=== PATIENT | male | born 1995 | race African-American/Black ===

== ENCOUNTER 2017-06-03 16:46 | Emergency (ER) | payer SELFPAY ==
[~2017-06-03] VITALS: Ht 185.4 cm; Wt 74.8 kg
[~2017-06-03 16:46] MED LIST: NAPR500T3 PO
[2017-06-03 17:00] VITALS: BP 133/83
--- NOTE | 2017-06-03 17:32 | PHYS DOC ---
Past Medical History Past Medical History: No Pertinent History Past Surgical History: Other Additional Past Surgical Histo: hernia Alcohol Use: None Drug Use: None Adult General Chief Complaint Chief Complaint: WRIST PAIN HPI HPI Patient is a 21 year old presents to the emergency Department stating around 11 :00 this when he was playing basketball when he collided with another person and fell and had his left wrist stepped on. Patient has full range of motion of the wrist however he does state he has increased pain when he moves system down into the wrist area. He does have some redness noted over the wrist area as well. 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 Patient states he has not taken anything for pain and discomfort as he has forgotten to take it. Review of Systems Review of Systems Constitutional: Denies fever or chills [] Eyes: Denies change in visual acuity, redness, or eye pain [] HENT: Denies nasal congestion or sore throat [] Respiratory: Denies cough or shortness of breath [] Cardiovascular: No additional information not addressed in HPI [] GI: Denies abdominal pain, nausea, vomiting, bloody stools or diarrhea [] : Denies dysuria or hematuria [] Musculoskeletal: Denies back pain. Complaining right wrist pain and discomfort. Integument: Denies rash or skin lesions [] Neurologic: Denies headache, focal weakness or sensory changes [] Endocrine: Denies polyuria or polydipsia [] Allergies Allergies Allergies Coded Allergies Type Severity Reaction Last Updated Verified No Known Drug Allergies 08/21/16 No Physical Exam Physical Exam Constitutional: Well developed, well nourished, no acute distress, non-toxic appearance. [] HENT: Normocephalic, atraumatic, bilateral external ears normal, oropharynx moist, no oral exudates, nose normal. [] Eyes: PERRLA, EOMI, conjunctiva normal, no discharge. [] Neck: Normal range of motion, no tenderness, supple, no stridor. [] Cardiovascular:Heart rate regular rhythm Lungs & Thorax: No respiratory distress noted. Skin: Warm, dry, no erythema, no rash. [] Back: No tenderness Extremities: Left wrist tenderness, no cyanosis, no clubbing, ROM intact, no edema. Patient was noted to have redness over the radial part of the left wrist. 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 Full range of motion of the wrist noted. Cap refill brisk less than 2 seconds. Peripheral pulses 2+. Neurologic: Alert and oriented X 3, normal motor function, normal sensory function, no focal deficits noted. [] Psychologic: Affect normal, judgement normal, mood normal. [] Current Patient Data Vital Signs Vital Signs Date Time Temp Pulse Resp B/P (MAP) Pulse Ox O2 Delivery O2 Flow Rate FiO2 06/03/17 17:00 98.1 59 16 98 Room Air 98.1 EKG EKG [] Radiology/Procedures Radiology/Procedures [] Course & Med Decision Making Course & Med Decision Making Pertinent Labs and Imaging studies reviewed. (See chart for details) Aidan wrap placed over the area with recommendations to wear this for the next 5- 7 days. Tylenol or ibuprofen for pain and discomfort. Ice packs on 20 minutes off 20 minutes several times today. Elevation as much as possible. X-rays were negative per Dr. Ku. Patient will be provided with orthopedic name and number to follow up with for any continued discomfort within the next week. Patient was provided with signs and symptoms to return back to emergency department. Patient be discharged home in stable condition. All questions and concerns answered patient at bedside. [] Dragon Disclaimer Dragon Disclaimer This electronic medical record was generated, in whole or in part, using a voice recognition dictation system. Departure Departure Impression: Primary Impression: Left wrist pain Disposition: 01 HOME, SELF-CARE Condition: STABLE Referrals: NO PCP (PCP) Patient Instructions: Wrist Sprain with Rehab-SportsMed Additional Instructions: Activity as tolerated. Wear the Aidan wrap for the next 5-7 days. Ice packs on 20 minutes off 20 minutes several times a day Tylenol or ibuprofen for pain and discomfort. Follow-up with orthopedic within the next week. Return back to emergency prior signs symptoms of become worse. ZOILA HARRISON MORTGAGE LOAN COORDINATOR Jun 03, 2017 17:32
--- NOTE | 2017-06-04 07:31 | RAD ---
Exam: Left wrist radiographs 06/03/2017 at 1702 hours Indication: Pain and swelling at the first and second CMC joint. Comparison: None available Technique: 3 views of the left wrist are provided. Findings: There is no acute fracture or dislocation. No joint space narrowing. No significant soft tissue swelling. No osseous erosion or soft tissue gas. Bone mineralization is within normal limits. Impression: No acute fracture or dislocation.
== END 2017-06-03 17:55 | disposition home or self-care (01) ==
LOC: ER 16:46
DX: M25.532 Pain in left wrist (principal); W50.0XXA Accidental hit or strike by another person, initial encounter; Y93.67 Activity, basketball; Y92.89 Other specified places as the place of occurrence of the external cause; Y99.8 Other external cause status
CPT/HCPCS: 73110; 99284-25

== ENCOUNTER 2018-07-26 19:03 | Emergency (ER) | payer SELFPAY ==
[~2018-07-26] VITALS: Ht 188 cm; Wt 79.4 kg
[~2018-07-26 19:03] MED LIST changes: +NAPR-514 PO; -NAPR500T3 PO
[2018-07-26 19:18] VITALS: BP 130/85
--- NOTE | 2018-07-26 19:38 | PHYS DOC ---
Past Medical History Past Medical History: No Pertinent History Past Surgical History: Other Additional Past Surgical Histo: hernia Alcohol Use: None Drug Use: None Adult General Chief Complaint Chief Complaint: ANKLE PROBLEM HPI HPI Patient is a 22 year old male who presents with 7 out of 10 left lateral ankle pain that began on Thursday last week, patient states he was playing basketball when he rolled his ankle. Patient states he has been icing and elevating the extremity with some relief. Review of Systems Review of Systems Constitutional: Denies fever or chills [] Musculoskeletal: Reports left lateral ankle pain Integument: Denies rash or skin lesions [] Neurologic: Denies headache, focal weakness or sensory changes [] All other systems were reviewed and found to be within normal limits, except as documented in this note. Allergies Allergies Allergies Coded Allergies Type Severity Reaction Last Updated Verified No Known Drug Allergies 08/21/16 No Physical Exam Physical Exam Constitutional: Well developed, well nourished, no acute distress, non-toxic appearance. [] Skin: Warm, dry, no erythema, no rash. [] Back: No tenderness, no CVA tenderness. [] Extremities: Left ankle with no obvious deformity. Mild soft tissue swelling noted on the left lateral ankle with bruising on the ankle. Full passive range of motion to the left ankle. +2 left pedal pulse. Cap refill less than 2 seconds left toes. Neurologic: Alert and oriented X 3, normal motor function, normal sensory function, no focal deficits noted. [] Psychologic: Affect normal, judgement normal, mood normal. [] Current Patient Data Vital Signs Vital Signs Date Time Temp Pulse Resp B/P (MAP) Pulse Ox O2 Delivery O2 Flow Rate FiO2 07/26/18 19:18 98.4 58 18 130/85 (100) 99 Room Air 98.4 EKG EKG [] Radiology/Procedures Radiology/Procedures [] Course & Med Decision Making Course & Med Decision Making Pertinent Labs and Imaging studies reviewed. (See chart for details) This is a 22-year-old male patient presented to the ED today with left ankle pain. Patient was playing basketball last week and landed on the ankle wrong. Right ankle x-rays interpreted by Dr. Hall is negative for any acute findings. Air cast provided to the left ankle by the ED RN, neurovascular exam is intact, ice elevation encouraged. Follow-up with orthopedic doctor in one week. OTC pain relievers. Dragon Disclaimer Dragon Disclaimer This electronic medical record was generated, in whole or in part, using a voice recognition dictation system. Departure Departure Impression: Primary Impression: Moderate left ankle sprain Disposition: HOME, SELF-CARE Condition: STABLE Referrals: NO PCP (PCP) RAKESH PONCE MD follow up in one week Patient Instructions: Ankle Sprain, Acute, with Phase I Rehab-SportsMed Additional Instructions: You were evaluated at the emergency room for left ankle sprain. Ice elevate the extremity. Follow-up with orthopedic doctor provided in one week. Come back to the emergency room at any point symptoms worsen. Scripts Naproxen (NAPROXEN) 500 Mg Tablet.dr 1 TAB PO BID, #20 TAB 0 Refills Prov: DALE NAPOLES APRN 07/26/18 Problem Qualifiers Primary Impression: Moderate left ankle sprain Encounter type: initial encounter Qualified Codes: S93.402A - Sprain of unspecified ligament of left ankle, initial encounter DALE NAPOLES APRN Jul 26, 2018 19:38
--- NOTE | 2018-07-26 19:47 | RAD ---
EXAM: LEFT ANKLE 3 VIEWS. HISTORY: Lateral ankle pain and swelling after injury. COMPARISON: None. FINDINGS: Three views of the left ankle are obtained. There is soft tissue swelling laterally greater than medially. No fractures are identified. Alignment is normal. Joint spaces are maintained. IMPRESSION: 1. Soft tissue swelling. No fracture. Electronically signed by: Mendy Arce MD (07/26/2018 7:45 PM) [facility]
[2018-07-26] MEDS ORDERED: NAPR500T8 PO (19:51)
== END 2018-07-26 20:03 | disposition home or self-care (01) ==
LOC: ER 19:03
DX: S93.402A Sprain of unspecified ligament of left ankle, initial encounter (principal); X58.XXXA Exposure to other specified factors, initial encounter; Y93.67 Activity, basketball; Y92.89 Other specified places as the place of occurrence of the external cause; Y99.8 Other external cause status
CPT/HCPCS: 73610; 99284; L4350

== ENCOUNTER 2020-11-11 02:21 | Emergency (ER) | payer SELFPAY ==
[~2020-11-11] VITALS: Ht 188 cm; Wt 74.0 kg
[~2020-11-11 02:21] MED LIST changes: +NAPR500T8 PO
[2020-11-11 02:28] VITALS: BP 116/64
--- NOTE | 2020-11-11 02:41 | PHYS DOC ---
Past Medical History Past Medical History: No Pertinent History Past Surgical History: No Surgical History, Other Additional Past Surgical Histo: hernia Smoking Status: Current Every Day Smoker Alcohol Use: Occasionally Drug Use: None Adult General Chief Complaint Chief Complaint: SEXUALLY TRANSMITTED DISEASE HPI HPI Patient is a 24 year old denies any possible history now presenting emergency department due to concern for STD exposure. Patient states that his girlfriend last had sexual intercourse with 2 weeks ago was diagnosed and treated for chlamydia 1 week ago. Patient denies any symptoms. Denies any fever, chills, dysuria pyuria Review of Systems Review of Systems Constitutional: Denies fever or chills [] Eyes: Denies change in visual acuity, redness, or eye pain [] HENT: Denies nasal congestion or sore throat [] Respiratory: Denies cough or shortness of breath [] Cardiovascular: No additional information not addressed in HPI [] GI: Denies abdominal pain, nausea, vomiting, bloody stools or diarrhea [] : Denies dysuria or hematuria [] Musculoskeletal: Denies back pain or joint pain [] Integument: Denies rash or skin lesions [] Neurologic: Denies headache, focal weakness or sensory changes [] Endocrine: Denies polyuria or polydipsia [] All other systems were reviewed and found to be within normal limits, except as documented in this note. Allergies Allergies Allergies Coded Allergies Type Severity Reaction Last Updated Verified No Known Drug Allergies 08/21/16 No Physical Exam Physical Exam Constitutional: Well developed, well nourished, no acute distress, non-toxic appearance. [] HENT: Normocephalic, atraumatic, bilateral external ears normal, oropharynx moist, no oral exudates, nose normal. [] Eyes: PERRLA, EOMI, conjunctiva normal, no discharge. [] Neck: Normal range of motion, no tenderness, supple, no stridor. [] Cardiovascular:Heart rate regular rhythm, no murmur [] Lungs & Thorax: Bilateral breath sounds clear to auscultation [] Abdomen: Bowel sounds normal, soft, no tenderness, no masses, no pulsatile masses. [] Skin: Warm, dry, no erythema, no rash. [] Back: No tenderness, no CVA tenderness. [] Extremities: No tenderness, no cyanosis, no clubbing, ROM intact, no edema. [] Neurologic: Alert and oriented X 3, normal motor function, normal sensory function, no focal deficits noted. [] Psychologic: Affect normal, judgement normal, mood normal. [] Current Patient Data Vital Signs Vital Signs Date Time Temp Pulse Resp B/P (MAP) Pulse Ox O2 Delivery O2 Flow Rate FiO2 11/11/20 02:28 98.2 70 20 116/64 (81) 99 Room Air 98.2 EKG EKG [] Radiology/Procedures Radiology/Procedures [] Course & Med Decision Making Course & Med Decision Making Pertinent Labs and Imaging studies reviewed. (See chart for details) 24-year-old male presenting for STI exposure. Will treat empirically, test for GC chlamydia and discharged home. Dragon Disclaimer Paxfire Disclaimer This electronic medical record was generated, in whole or in part, using a voice recognition dictation system. Departure Departure Impression: Primary Impression: STD exposure Disposition: 01 DC HOME SELF CARE/HOMELESS Condition: GOOD Referrals: NO PCP (PCP) Patient Instructions: Sexually Transmitted Disease Additional Instructions: EMERGENCY DEPARTMENT GENERAL DISCHARGE INSTRUCTIONS Thank you for coming to [facility] Emergency Department (ED) today and trusting us with you care. We trust that you had a positive experience in our Emergency Department. If you wish to speak to the department management, you may call the Director at [phone]. YOUR FOLLOW UP INSTRUCTIONS ARE FOLLOWS: 1. Do you have a private Doctor? If you do not have a private doctor, please ask for a resource list of physicians or clinics that may be able to assist you with follow up care. 2. The Emergency Physicain has interpreted your x-rays. The X-Ray specialist w ill also review them. If there is a change in the findings, you will be notified in 48 hours when at all possible. 3. A lab test or culture has been done, your results will be reviewed and you will be notified if you need a change in treatment. ADDITIONAL INSTRUCTIONS AND INFORMATION: 1. Your care today has been supervised by a physician who is specially trained in emergency care. Many problems require more than one evaluation for a complete diagnosis and treatment. We recommend that you schedule your follow up appointment as recommended to ensure complete treatment of you illness or injury. If you are unable to obtain follow up care and continue to have a problem, or if your condition worsens, we recommend that you return to the ED. 2. We are not able to safely determine your condition over the phone nor are we able to give sound medical advice over the phone. For these safety reasons, if you call for medical advice we will ask you to come to the ED for further evaluation. 3. If you have any questions regarding these discharge instructions please call the ED at [phone]. SAFETY INFORMATION: In the interest of safety, wellness, and injury prevention; we encourage you to wear your sealbelt, if you smoke; quite smoking, and we encourage family to use a protective helmet for bicycling and other sporting events that present an increased risk for head injury. IF YOUR SYMPTOMS WORSEN OR NEW SYMPTOMS DEVELOP, OR YOU HAVE CONCERNS ABOUT YOUR CONDITION; OR IF YOUR CONDITION WORSENS WHILE YOU ARE WAITING FOR YOUR FOLLOW UP APPOINTMENT; EITHER CONTACT YOUR PRIMARY CARE DOCTOR, THE PHYSICIAN WHOSE NAME AND NUMBER YOU WERE GIVEN, OR RETURN TO THE ED IMMEDIATELY. LUCIEN DAMIAN MD Nov 11, 2020 02:41
[2020-11-11] MEDS ORDERED: AZITHROMYCIN 250 MG TABLET. PO ONE (02:45)
[2020-11-11] MEDS ORDERED: cefTRIAXone IM 250 MG VIAL IM ONE (02:45)
== END 2020-11-11 03:12 | disposition home or self-care (01) ==
LOC: ER 02:21
DX: A64 Unspecified sexually transmitted disease (principal); F17.200 Nicotine dependence, unspecified, uncomplicated; Z98.890 Other specified postprocedural states
CPT/HCPCS: 87491; 87591; 96372; 99283; J0696